=== PATIENT | female | born 1995 | race Caucasian/White ===

== ENCOUNTER → 2016-11-05 | Outpatient (CLI) | payer BC | LOC: CT 09:52 | DX: N93.9 Abnormal uterine and vaginal bleeding, unspecified (principal); D47.3 Essential (hemorrhagic) thrombocythemia; R10.30 Lower abdominal pain, unspecified; D64.9 Anemia, unspecified; K76.0 Fatty (change of) liver, not elsewhere classified | CPT/HCPCS: J7050; Q9962 ==

== ENCOUNTER 2020-10-16 12:43 | Emergency (ER) | payer OTHER ==
[~2020-10-16 12:43] MED LIST: BENTYL 10MG CAP10 MG PO; BENTYL 20MG TAB20 MG PO; DIFLUCAN150 MG PO; IBUPROFEN600 MG PO; KEFLEX CAP 500500 MG PO; PREDNISONE 50 M50 MG PO; ZOFRAN ODT 4 MG4 MG PO; ZOFRAN ODT 4 MG4 MG SL
[2020-10-16 13:39] LABS: HEMOGLOBIN 15.4 gm/dl (12.3-15.3); RED BLOOD COUNT 5.05 M/UL (4.00-5.10); WHITE BLOOD COUNT 10.3 K/UL (4.5-11.0)
[2020-10-16 13:57] LABS: BUN/CREATININE RATIO 15 (0-10)
[2020-10-16] MEDS ORDERED: SPRINTEC 28 DA1 EACH PO (16:34)
== END 2020-10-16 17:35 | disposition home or self-care (01) ==
LOC: ER1 12:43
PROVIDERS: Physician Assistant
DX: N93.9 Abnormal uterine and vaginal bleeding, unspecified (principal); R42 Dizziness and giddiness; F17.290 Nicotine dependence, other tobacco product, uncomplicated
CPT/HCPCS: 74018; 76830; 80053; 81001; 84703; 85025; 99284; J7030